=== PATIENT | female | born 1995 | race American Indian/Alaskan Native ===

== ENCOUNTER 2020-08-25 23:17 | Emergency (ER) | payer SELFPAY ==
[2020-08-26] MEDS ORDERED: IBUPROFEN 600 MG TAB PO ONE (00:21)
--- NOTE | 2020-08-26 00:28 | Emergency Department Report ---
ED Lower Extremity HPI - General Chief Complaint: Extremity Injury, Lower Stated Complaint: LEG LACERATION Source: patient Mode of arrival: Ambulatory Limitations: No Limitations - History of Present Illness Initial Comments: 25-year-old -[place] female presents to the emergency room for right lower leg injury. Patient states that she hit her right lower leg against the bed rail post started to bleed and pain. Patient reports she is currently on her menstrual cycle now. Denies any possibility of being . Has past medical history of asthma. Complaint: leg injury -: This evening Injury: Leg: Right (Distal leg), Ankle: Right (Proximal leg) Type of Injury: puncture wound Place: other ([facility]) Severity: severe Severity scale (0 -10): 9 Improves With: immobilization Worsens With: weight bearing, movement, palpation Context: direct blow Treatments Prior to Arrival: bandage - Related Data Allergies Allergy/AdvReac Type Severity Reaction Status Date / Time No Known Allergies Allergy Unverified 08/25/20 23:57 ED Review of Systems ROS: Stated complaint: LEG LACERATION Other details as noted in HPI Comment: All other systems reviewed and negative ED Past Medical Hx - Past Medical History Previous Medical History?: Yes Hx Asthma: Yes - Surgical History Past Surgical History?: No - Social History Smoking Status: Never Smoker ED Physical Exam - General Limitations: No Limitations General appearance: alert - Head Head exam: Present: atraumatic - Eye Eye exam: Present: normal appearance - ENT ENT exam: Present: mucous membranes moist - Neck Neck exam: Present: normal inspection, full ROM - Expanded Lower Extremity Exam Right Hip exam: Present: full ROM Upper Leg exam: Present: normal inspection, full ROM Knee exam: Present: normal inspection, full ROM Lower Leg exam: Present: full ROM, tenderness Ankle exam: Present: full ROM, tenderness, swelling Foot/Toe exam: Present: normal inspection, full ROM Neuro vascular tendon exam: Present: no vascular compromise ED Course Vital Signs 08/26/20 00:01 Temperature 97.7 F Pulse Rate 89 Respiratory 20 Rate Blood Pressure 122/77 [Right] O2 Sat by Pulse 100 Oximetry ED Lower Extremity MDM - Medical Decision Making 25-year-old -[place] female presents to the emergency room for right lower leg injury. Patient states that she hit her right lower leg against the bed rail post started to bleed and pain. Patient reports she is currently on her menstrual cycle now. Denies any possibility of being . Has past medical history of asthma. X-ray of right tib-fib shows no fractures. Patient can keep wound clean and dry. Ibuprofen or Tylenol for pain management. Follow-up with her primary care provider if she has any further concerns. Critical care attestation.: If time is entered above; I have spent that time in minutes in the direct care of this critically ill patient, excluding procedure time. ED Disposition Clinical Impression: Injury of right lower leg, Puncture wound Disposition: DC- TO HOME OR SELFCARE Is pt being admited?: No Does the pt Need Aspirin: No Condition: Stable Instructions: Wound Infection, [id number] Additional Instructions: X-ray of right tib-fib shows no fractures. Patient can keep wound clean and dry. Ibuprofen or Tylenol for pain management. Follow-up with her primary care provider if she has any further concerns. Referrals: PRIMARY CARE [Primary Care Provider] - 3-5 Days [facility] [Provider Group] - 3-5 Days Forms: Work/School Release Form(ED)
--- NOTE | 2020-08-26 01:03 | XRay Report ---
XR tibia fibula 2V RT INDICATION / CLINICAL INFORMATION: trauma to distal lower leg. COMPARISON: None available. FINDINGS: No acute fracture. No foreign body. Normal alignment. Joint spaces are preserved. No destructive oss eous lesion or suspicious periosteal reaction. Impression: 1.No acute fracture. Signer Name: Derrick Barger MD Signed: 08/26/2020 12:58 AM Workstation Name: [id number]
[2020-08-26] MEDS ORDERED: DIPHtheria,PERTUSSIS(ACELL),TETANUS VACCINE/PF 0.5 ML VIAL IM ONE (01:59)
[2020-08-26 02:57] VITALS: BP 124/77
== END 2020-08-26 03:56 | disposition home or self-care (01) ==
LOC: ED 23:17
DX: S81.831A Puncture wound without foreign body, right lower leg, initial encounter (principal); J45.909 Unspecified asthma, uncomplicated; X58.XXXA Exposure to other specified factors, initial encounter; Y93.89 Activity, other specified; Y92.89 Other specified places as the place of occurrence of the external cause; Y99.8 Other external cause status
CPT/HCPCS: 90471; 90715; 99283